=== PATIENT | female | born 1965 | race Caucasian/White ===

== ENCOUNTER → 2018-05-30 13:10 | Outpatient (CLI) | payer BC, SELFPAY | PROVIDERS: PCP Family Medicine; Visit Provider Family Medicine | DX: G47.33 Obstructive sleep apnea (adult) (pediatric) (principal); G47.10 Hypersomnia, unspecified; E66.9 Obesity, unspecified | CPT/HCPCS: G0399 ==

== ENCOUNTER → 2019-09-22 09:37 | Outpatient (CLI) | payer BC, SELFPAY ==
[2019-09-22 10:20] VITALS: PULSE 68; PULSE 70
== END ==
PROVIDERS: PCP Family Medicine; Visit Provider Nurse Practitioner
DX: R06.02 Shortness of breath (principal)
CPT/HCPCS: 94060; 94640; 94726; 94729

== ENCOUNTER → 2019-09-23 14:38 | Outpatient (CLI) | payer BC, SELFPAY ==
--- NOTE | 2019-09-23 14:57 | XR_ITS ---
PROCEDURE: XR CHEST 2V CLINICAL HISTORY: SOB ON EXERTION COMPARISON: No exams were available for comparison FINDINGS: The cardiomediastinal silhouette and pulmonary vascularity are within normal limits. The lungs are clear without infiltrates, suspicious nodules, or pleural effusions. No acute bony abnormalities. IMPRESSION: No acute findings. Dictated b Yonis Barrios MD 09/23/2019 15:23 Yonis Barrios MD in [place] 09/23/2019 15:23
== END ==
PROVIDERS: PCP Nurse Practitioner; Visit Provider Nurse Practitioner
DX: R06.02 Shortness of breath (principal)
CPT/HCPCS: 71046

== ENCOUNTER → 2019-10-02 06:53 | Outpatient (CLI) | payer BC, SELFPAY ==
--- NOTE | 2019-10-02 | CA_ITS ---
APPROVED REPORT Technologist: Rossy Mcnally, Ht: 5 ft 4 in Wt: 206 lbs BSA: 1.98 m2 HR: 64 bpm BP: 124/72 mmHg Rhythm: NSR Indications: Chest Pain, Dyspnea Medical History Allergies: No known drug allergies Stress Test Details Test: Sajan HR Resting HR: 77 bpm Max Heart Rate (APMHR): 168 bpm Max HR Achieved: 152 bpm Target HR (85% APMHR): 142 bpm % of APMHR: 90 Recovery HR: 120 bpm BP Resting BP: 124/72 mmHg Max BP: 144/72 mmHg Recovery BP: 164.0/72.0 mmHg ECG Resting ECG: NSR Clinical Exercise duration: 08:03 min Highest Stage Achieved: Exercise capacity: 10.1 METs Stress ECG Conclusion Sajan Protocal completed. Exercised 08:03. Mets 10.1. Max BP 144/72. Max HR 152 bpm. Stopped due to SOB. No CP, SOB at peak infusion/exercise. Occasional PVC, less than 1.5mm ST depression. Images to follow. Test Summary . Sitting . . . . . . . Cardiolite injected . . Stop exercise at 08:03 . . . . Electronically signed by : Bartolo Muller, 10/02/2019 13:18:17
--- NOTE | 2019-10-02 07:17 | NM_ITS ---
APPROVED REPORT Exam: Nuclear Stress Test Indication: c.p., sob, palpitations, fatigue Patient Location: Outpatient Stress Tech: Lisbet Chirinosnkson [place] Tech:JARRELL Gomez RT (R)(N)(M) Ht: 5 ft 4 in Wt: 206 lbs Bra Size: 40D HR: 64 bpm BP: 124/72 mmHg BSA: 1.98 m2 BMI: 35.3 History: c.p., sob, palpitations, fatigue Procedure: Patient exercised on Sajan protocol 8:03 minutes and sec, resting heart rate 64 bpm, resting blood pressure 124/72 mmHg, with exercise maximum heart rate achived was 152 bpm which is 90 % of the maximum predicted heart rate and blood pressure was 144/72 mmHg. Patient denied any complaint of chest pain. Patient has Good exercise capacity, achieved 10.1 METs of workload on treadmill, the blood pressure response to exercise was Adequate. Electrocardiogram Resting electrocardiogram showed sinus rhythm, with exercise there is less than 1.[address] segment depression noted from the baseline EKG. The EKG portion of the exercise Myoview is negative for ischemia. Cardiac Stress and Resting SPECT Images: Cardiac Stress and Resting SPECT images were obtained using technetium 99m Myoview 31.2 mCi stress and 10.32 mCi at rest. Gated SPECT for analysis of segmental wall motion and calculation of the ejection fraction also done. Cardiac stress and resting SPECT images show mild fixed defect anteroseptally with normal hiral gated SPECT is likely secondary to soft tissue attenuation, no reversible ischemia seen, computer derived ejection fraction is over 65% with no regional wall motion abnormality, right ventricle is normal size and contractility. Conclusion: 1. The EKG portion of the exercise Myoview is negative for ischemia, patient has good exercise capacity achieved 10.1 mets of workload on treadmill, the blood pressure response to exercise was adequate, there was no exercise-induced chest discomfort. 2. No scintigraphic evidence of reversible ischemia seen at this level of exercise, computer derived ejection fraction is over 65% with no regional wall motion abnormality, right ventricle is normal size and contractility. 3. Likely normal exercise Myoview study. Electronically signed by : Bartolo Muller, 10/02/2019 13:21:29
--- NOTE | 2019-10-02 08:27 | CA_ITS ---
APPROVED REPORT EXAM: Comprehensive 2D, Doppler, and color-flow Echocardiogram [employer]visor [employer]: Jil King RT(R) Ht: 5 ft 4 in Wt: 206lbs BSA: 1.98 BP: 143/91 mmHg Indications: CP, palpitations, fatigue, edema, SOB, SCHRADER, obesity 2D Dimensions LVOT 1.95 cm (M/F) 1.5-2.5 M-Mode Dimensions RVDd 2.30 cm (0.9-2.6) LVDd 4.16 cm (3.5-5.7) LVDs 2.98 cm (3.5-5.7) IVSd 0.83 cm (0.6-1.1) PWd 0.93 cm (0.6-1.1) EF (Teich) 55.20% FS 28.40% EDV (Teich) 76.80 mL ESV (Teich) 34.40 mL LV Diastology E/A Ratio 1.37 Mitral Valve MV A Velocity 61.00 (40-130 cm/s) Left Ventricle Left atrium is normal size, left ventricle is normal size, there is no concentric left ventricular hypertrophy, visually estimated ejection fraction 55% with no regional wall motion abnormality. Diastolic parameters are within normal range. Right Ventricle Right atrium and right ventricular normal size and contractility. Aortic Valve Aortic valve is grossly normal, there is no aortic stenosis or aortic insufficiency. Mitral Valve Mitral valve is grossly normal, there is trace mitral regurgitation. Tricuspid Valve Tricuspid valve is grossly normal, there is trace tricuspid regurgitation. Pulmonic Valve Pulmonic valve is poorly visualized. Great Vessels Aortic root is normal size. Pericardium No significant pericardial effusion noted. Conclusion 1. Normal left ventricular size, preserved left ventricular systolic function, visually estimated ejection fraction 55% with no regional wall motion abnormality, diastolic parameters are within normal range. 2. Mild mitral and tricuspid regurgitation. 3. No significant pericardial effusion noted. Electronically signed by : Bartolo Muller, 10/02/2019 14:03:05
== END ==
PROVIDERS: PCP Nurse Practitioner; Visit Provider Family Medicine
DX: R06.02 Shortness of breath (principal); R00.2 Palpitations
CPT/HCPCS: 78452; 93017; 93225; 93226; 93306; A9502

== ENCOUNTER → 2019-10-07 08:23 | Outpatient (CLI) | payer BC, SELFPAY ==
[2019-10-07 13:04] LABS: Coronavirus 19 IgG Antibody Negative (Negative); Coronavirus 19 IgM Antibody Negative (Negative)
== END ==
PROVIDERS: Visit Provider Surgery
DX: Z01.818 Encounter for other preprocedural examination (principal); Z12.11 Encounter for screening for malignant neoplasm of colon
CPT/HCPCS: 36415; 86328

== ENCOUNTER 2019-10-08 06:22 | Day surgery (SDC) | payer BC, SELFPAY ==
[2019-10-06 10:06] VITALS: BMI 35.3
[2019-10-08 07:00] VITALS: BP 116/75; PULSE 67; RESP 18; TEMP 36.2; O2SAT 97
[2019-10-08 08:00] VITALS: O2SAT 97
--- NOTE | 2019-10-08 08:02 | SUR.PREOP ---
#22g angio started in pts lle upon arrival in scope room
--- NOTE | 2019-10-08 08:13 | HMH.ANESCL ---
[facility] Anesthesia Checklist - Patient Identification Patient Identification: Arm Band, Verbal (Name & ) - Structural Data Admitted From: Home Planned Operative Procedure/s: Colonoscopy Consent for Planned Operative Procedure(s) Verified: Yes Verified Documents: Surgical Consent, History and Physical - Chart Verification Results Verified: None - Additional verifications Anesthesia Reactions: No - Airway Assessment C-Spine Mobility Assessed: Yes TMJ Mobility Assessed: Yes Dentition: Good Dentition (Missing teeth) - Neurological Assessment Level of Consciousness: Awake, Alert, Appropriate, Follows Commands Hx Seizures: No Numbness or tingling in extremities: No - Anesthesia Plan Anesthesia Risk discussed: Yes Anesthesia Plan: Verified ASA Class: II Anesthesia Type: MAC [facility] History I have reviewed the patient's past medical history: Yes Medical History: Reports:: Asthma (exertional ) Denies:: Cancer, Diabetes Mellitus Type 1, Diabetes Mellitus Type 2, MRSA *Have you ever received a pneumonia vaccine?: No *Have you received a flu vaccine this season?: No Comment:: obesity Anesthesia experience/problems:: No prior complications Other Surgeries: Yes: , Tubal Ligation Amputation: No Fractures: No - *Social History Last grade of school completed: High school graduate Smoking Status: Never smoker Alcohol Intake: never Substance Use Type: denies use *Occupational Status:: employed *Travel in the last 8 weeks: None Family Hx:: Other (NA)
[2019-10-08 08:22] VITALS: BP 80/48; PULSE 66; RESP 18; TEMP 36.7; O2SAT 93
--- NOTE | 2019-10-08 08:23 | HMH.SCOPE ---
- Procedure: Date: 10/08/19 Patient Date of :: 1965 Procedure Performed:: Colonoscopy Indications:: Family history of colon cancer Performing Provider:: Sav Way MD Referring Provider:: . Sedation:: Monitored anesthesia care Procedure:: After informed consent was obtained the patient was taken to the endoscopy suite. Sedation ensued after the patient was transferred to the left lateral decubitus position. Pulse, blood pressure, and oxygen saturation were monitored throughout the procedure. Digital rectal exam revealed no significant abnormality. The colonoscope was placed in position. The entire colon was evaluated. The colonoscope was carefully removed and the patient was transferred to recovery in stable condition. Please see findings and specimens below for detail. Findings:: Minimal hemorrhoidal cushions Bowel preparation moderate Significant spasticity/lack of relaxation Specimens:: None Recommendations:: Repeat colonoscopy in approximately 3 years secondary to family history of colon cancer, moderate bowel preparation, and spasticity/lack of relaxation. Complications:: No immediate Estimated blood obtained (mL): 0
[2019-10-08 08:32] VITALS: BP 85/45; PULSE 66; RESP 18; O2SAT 97
[2019-10-08 08:42] VITALS: BP 93/58; PULSE 62; RESP 18; O2SAT 97
[2019-10-08 09:00] VITALS: BP 100/70; PULSE 63; RESP 18; O2SAT 97
== END 2019-10-08 09:00 | disposition home or self-care (01) ==
LOC: OUTP 06:24
PROVIDERS: PCP Nurse Practitioner; Visit Provider Surgery
PROC: 0DJD8ZZ Inspection of Lower Intestinal Tract, Via Natural or Artificial Opening Endoscopic (ICD-10-PCS; CPT 45378; principal; 2019-10-08 07:30)
DX: Z12.11 Encounter for screening for malignant neoplasm of colon (principal); Z80.0 Family history of malignant neoplasm of digestive organs; K64.0 First degree hemorrhoids; K59.8 Other specified functional intestinal disorders; J45.909 Unspecified asthma, uncomplicated; E66.9 Obesity, unspecified; Z68.35 Body mass index [BMI] 35.0-35.9, adult; Z79.899 Other long term (current) drug therapy
CPT/HCPCS: 45378; J2704

== ENCOUNTER → 2021-10-02 06:14 | Outpatient (CLI) | payer BC, SELFPAY ==
[2021-10-02 20:07] LABS: Basophils % 0.7 % (0.1-2.0); Eosinophils # 0.2 K/mm3 (0.0-0.4); Eosinophils % 3.9 % (0.1-12.0); Hematocrit 43.7 % (37.0-47.0); Hemoglobin 13.5 g/dL (12.2-16.2); Lymphocytes # 2.2 K/mm3 (0.7-4.5); Lymphocytes % 39.7 % (10-50); Mean Corpuscular HGB Conc 30.9 g/dL (31.8-35.4); Mean Corpuscular Hemoglobin 30.6 pg (27.0-31.2); Mean Corpuscular Volume 98.9 fl (81-99); Mean Platelet Volume 9.4 fl (7.4-10.4); Monocytes # 0.4 K/mm3 (0.1-1.0); Monocytes % 8.2 % (1.7-9.3); Neutrophils # 2.6 K/mm3 (1.8-7.8); Neutrophils % 47.5 % (37.0-80.0); Platelet Count 292 K/mm3 (142-424); Red Blood Count 4.41 M/mm3 (4.20-5.40); Red Cell Distribution Width 13.2 % (11.5-17.5); White Blood Count 5.4 K/mm3 (4.8-10.8)
[2021-10-02 20:12] LABS: Alanine Aminotransferase 27 U/L (12-78); Albumin Level 4.2 g/dl (3.5-5.0); Albumin/Globulin Ratio 1.6 (1.1-1.8); Alkaline Phosphatase 110 U/L (38-126); Anion Gap 10.5 mEq/L (5-15); Aspartate Amino Transferase 39 U/L (14-36); Bilirubin,Total 0.3 mg/dl (0.2-1.3); Blood Urea Nitrogen 10 mg/dl (7-17); Calcium 9.6 mg/dl (8.4-10.2); Carbon Dioxide 29 mmol/L (22.0-30.0); Chloride 106 mmol/L (98-107); Chol/HDL Ratio 3.6 (1-3.5); Cholesterol 168 mg/dl (140-200); Estimated Glomerular Filt Rate 87 ml/min (>60); GFR (African American) 106 ML/MIN (>60); Globulin 2.7 g/dL (1.3-3.2); Glucose 92 mg/dl (74-100); HDL Cholesterol 47 mg/dl (40-60); Potassium 4.5 mmoL/L (3.5-5.1); Sodium 141 mmol/L (136-145); Total Protein,Serum 6.9 g/dl (6.3-8.2); Triglycerides 63 mg/dl (30-150); VLDL Cholesterol 13 mg/dL (0-40)
[2021-10-02 20:30] LABS: T4 (Thyroxine) 10.1 ug/dl (5.53-11.0)
[2021-10-02 20:42] LABS: Thyroid Stimulating Hormone 1.37 uIU/mL (0.465-4.68)
[2021-10-02 21:03] LABS: Vitamin B12 624 pg/mL (239-931)
[2021-10-02 22:38] LABS: 25-OH Vitamin D, Total 43.2 ng/mL (30-100)
[2021-10-04 13:50] LABS: Direct LDL Cholesterol 100 mg/dL (100-129)
== END ==
PROVIDERS: PCP Family Medicine; Visit Provider Family Medicine
DX: Z00.00 Encounter for general adult medical examination without abnormal findings (principal); R53.83 Other fatigue; E66.3 Overweight; Z68.33 Body mass index [BMI] 33.0-33.9, adult; Z83.3 Family history of diabetes mellitus; Z79.899 Other long term (current) drug therapy
CPT/HCPCS: 80053; 80061; 82306; 82607; 84436; 84443; 85025

== ENCOUNTER → 2022-11-12 23:37 | Outpatient (CLI) | payer BC, SELFPAY | PROVIDERS: PCP Nurse Practitioner; Visit Provider Nurse Practitioner | DX: N30.01 Acute cystitis with hematuria (principal) | CPT/HCPCS: 87086 ==

== ENCOUNTER → 2022-12-17 08:18 | Outpatient (CLI) | payer BC, SELFPAY ==
[2022-12-17 21:04] LABS: Alanine Aminotransferase 41 U/L (12-78); Albumin Level 4.3 g/dl (3.5-5.0); Albumin/Globulin Ratio 1.5 (1.1-1.8); Alkaline Phosphatase 99 U/L (38-126); Anion Gap 11.8 mEq/L (5-15); Aspartate Amino Transferase 43 U/L (14-36); Bilirubin,Total 0.3 mg/dl (0.2-1.3); Blood Urea Nitrogen 13 mg/dl (7-17); Calcium 9.7 mg/dl (8.4-10.2); Carbon Dioxide 29 mmol/L (22.0-30.0); Chloride 104 mmol/L (98-107); Chol/HDL Ratio 4.3 (1-3.5); Cholesterol 180 mg/dl (140-200); Estimated Glomerular Filt Rate 74 ml/min (>60); GFR (African American) 90 ML/MIN (>60); Globulin 2.9 g/dL (1.3-3.2); Glucose 89 mg/dl (74-100); HDL Cholesterol 42 mg/dl (40-60); Potassium 4.8 mmoL/L (3.5-5.1); Sodium 140 mmol/L (136-145); Total Protein,Serum 7.2 g/dl (6.3-8.2); Triglycerides 138 mg/dl (30-150); VLDL Cholesterol 28 mg/dL (0-40)
[2022-12-17 21:14] LABS: Direct LDL Cholesterol 102.21 mg/dL (100-129)
== END ==
PROVIDERS: PCP Nurse Practitioner; Visit Provider Nurse Practitioner
DX: E66.9 Obesity, unspecified (principal); Z68.35 Body mass index [BMI] 35.0-35.9, adult; Z79.899 Other long term (current) drug therapy
CPT/HCPCS: 80053; 80061

== ENCOUNTER 2023-03-21 22:04 | Outpatient (CLI) | payer BC, SELFPAY ==
[2023-03-21 18:59] LABS: Basophils % 0.5 % (0.1-2.0); Eosinophils # 0.2 K/mm3 (0.0-0.4); Eosinophils % 2.8 % (0.1-12.0); Hematocrit 41.8 % (37.0-47.0); Hemoglobin 13.6 g/dL (12.2-16.2); Lymphocytes # 2.8 K/mm3 (0.7-4.5); Lymphocytes % 41.4 % (10-50); Mean Corpuscular HGB Conc 32.5 g/dL (31.8-35.4); Mean Corpuscular Hemoglobin 31.3 pg (27.0-31.2); Mean Corpuscular Volume 96.3 fl (81-99); Monocytes # 0.5 K/mm3 (0.1-1.0); Neutrophils # 3.3 K/mm3 (1.8-7.8); Neutrophils % 48.2 % (37.0-80.0); Platelet Count 301 K/mm3 (142-424); Red Blood Count 4.34 M/mm3 (4.20-5.40); Red Cell Distribution Width 13.3 % (11.5-17.5); White Blood Count 6.8 K/mm3 (4.8-10.8)
[2023-03-21 19:00] LABS: Alanine Aminotransferase 26 U/L (12-78); Albumin Level 4.2 g/dl (3.5-5.0); Albumin/Globulin Ratio 1.6 (1.1-1.8); Alkaline Phosphatase 87 U/L (38-126); Aspartate Amino Transferase 30 U/L (14-36); Bilirubin,Total 0.3 mg/dl (0.2-1.3); Blood Urea Nitrogen 17 mg/dl (7-17); Calcium 9.3 mg/dl (8.4-10.2); Carbon Dioxide 28 mmol/L (22.0-30.0); Chloride 106 mmol/L (98-107); Chol/HDL Ratio 3.7 (1-3.5); Cholesterol 211 mg/dl (140-200); Estimated Glomerular Filt Rate 87 ml/min (>60); GFR (African American) 105 ML/MIN (>60); Globulin 2.7 g/dL (1.3-3.2); Glucose 90 mg/dl (74-100); HDL Cholesterol 57 mg/dl (40-60); Sodium 142 mmol/L (136-145); Total Protein,Serum 6.9 g/dl (6.3-8.2); Triglycerides 69 mg/dl (30-150); VLDL Cholesterol 14 mg/dL (0-40)
[2023-03-21 19:11] LABS: Direct LDL Cholesterol 117.99 mg/dL (100-129)
[2023-03-21 19:17] LABS: 25-OH Vitamin D, Total 30.2 ng/mL (30-100)
[2023-03-21 19:29] LABS: Anion Gap 12.2 mEq/L (5-15); Potassium 4.2 mmoL/L (3.5-5.1)
[2023-03-21 19:32] LABS: Thyroid Stimulating Hormone 1.42 uIU/mL (0.465-4.68)
[2023-03-21 19:51] LABS: Vitamin B12 439 pg/mL (239-931)
[2023-03-22 00:08] LABS: Hemoglobin A1C 5.5 % (4.0-6.0)
== END 2023-03-21 23:59 ==
LOC: LAB.DROPOF 22:04
PROVIDERS: PCP Nurse Practitioner; Visit Provider Nurse Practitioner
DX: K21.9 Gastro-esophageal reflux disease without esophagitis (principal); R30.0 Dysuria; E66.9 Obesity, unspecified; Z68.35 Body mass index [BMI] 35.0-35.9, adult; Z79.85 Long-term (current) use of injectable non-insulin antidiabetic drugs; Z79.899 Other long term (current) drug therapy
CPT/HCPCS: 80053; 80061; 82306; 82607; 83036; 84443; 85025

== ENCOUNTER 2023-07-12 11:45 | Emergency (ER) | payer BC, SELFPAY ==
[2023-07-12 12:04] VITALS: BP 129/71; PULSE 81; RESP 16; TEMP 36.9; O2SAT 100; BMI 36.9
--- NOTE | 2023-07-12 12:06 | ED_ITS ---
Discharge Plan Disposition Patient Disposition: Home, Self-Care Condition: Good Prescriptions Prescriptions: New cyclobenzaprine 10 mg Tablet 10 mg PO BID PRN (Reason: Muscle Spasm) Qty: 20 0RF methylprednisolone 4 mg Tablets,Dose Pack 4 mg PO DIRECTED 6 Days Qty: 21 0RF Rx Instructions: Take 1 pack as directed for 6 days No Action Wegovy 2.4 mg/0.75 mL pen injector 2.4 mg SQ WEEKLY Qty: 3 2RF omeprazole 40 mg capsule,delayed release(DR/EC) See Rx Instructions .ROUTE .COMPLEX Qty: 30 2RF Dose Instruction: TAKE 1 CAPSULE BY MOUTH ONCE DAILY Rx Instructions: TAKE 1 CAPSULE BY MOUTH ONCE DAILY topiramate 25 mg tablet See Rx Instructions .ROUTE .COMPLEX Qty: 60 2RF Dose Instruction: Take 1 Tablet by mouth twice daily. Rx Instructions: Take 1 Tablet by mouth twice daily. Referrals Follow up/Referrals: Esteban Gutierrez MD [Primary Care Provider] - See instructions Activity Restrictions/Add. Instructions Additional Instructions/Restrictions: Go home and rest. It would be best if you rested tomorrow too. No heavy lifting. No twisting for the next few days. Take the oral medications as directed. The muscle relaxer (cyclobenzaprine--Flexeril) will make you drowsy, so don't drive or operate heavy machinery after taking it. Follow up with your regular doctor. GO TO THE ER FOR ANY WORSENING SYMPTOMS OR CONCERN, ESPECIALLY BOWEL OR BLADDER ISSUES, SADDLE AREA NUMBNESS, FEVER, ETC Clinical Impressions Clinical Impression: Back pain, thoracic, Knee pain, Foot pain Stand Alone Forms Stand Alone Forms: Work/School Release Instructions Patient Instructions: DI for Foot Pain, DI for Knee Pain, Cyclobenzaprine, Methylprednisolone, Thoracic Back Pain Discharge ED Provider: Ray Weaver [facility] General Stated complaint: back pain Time Seen by Provider: 07/12/23 12:06 Related Data Previous Rx's Medication Instructions Recorded omeprazole 40 mg capsule,delayed See Rx Instructions .Route 02/21/23 release .COMPLEX #30 caps topiramate 25 mg tablet See Rx Instructions .Route 03/11/23 .COMPLEX #60 tabs semaglutide (weight loss) 2.4 2.4 mg (0.75 mL) SQ WEEKLY #3 mL 03/21/23 mg/0.75 mL subcutaneous pen injector (Carlos Alberto) cyclobenzaprine 10 mg tablet 10 mg PO BID PRN Muscle Spasm #20 07/12/23 tabs methylprednisolone 4 mg tablets in 4 mg PO DIRECTED 6 days #21 tabs 07/12/23 a dose pack Allergies Allergy/AdvReac Type Severity Reaction Status Date / Time No Known Allergies Allergy Verified 04/22/23 10:15 [facility] Disclaimer: The information contained in this section may have been updated after the patient was seen, as this information can be updated by other users. Medical History Obesity GERD (gastroesophageal reflux disease) Adult ADHD Anxiety Surgical History History of tubal ligation History of Social History Smoking Status: Never smoker alcohol intake: never substance use type: denies use current occupational status: employed Travel in the last 8 weeks: None caffeine: No ROS Obtained: Yes All systems reviewed & no additional complaints except as documented Constitutional Constitutional: Denies chills and Denies fever(s) Eyes Eyes: Denies eye discharge ENT Ears, Nose, Mouth, and Throat: Denies dizziness, Denies otalgia and Denies sore throat Cardiovascular Cardiovascular: Denies chest pain Respiratory Respiratory: Denies shortness of breath, Denies chest congestion, Denies cough, Denies stridor and Denies wheezing Gastrointestinal Gastrointestingal: Denies nausea or vomiting Musculoskeletal Musculoskeletal: Reports as per HPI Integumentary/Breasts Skin/Breast: Denies rash Neurologic Neurologic: Denies dizziness and Denies paresthesias Allergic/Immunologic Allergic/Immunologic: Denies wheezing Physical Exam General General appearance: alert and in no apparent distress Head Head exam: atraumatic, normocephalic and normal inspection Eye Eye exam: Present normal appearance, PERRL and EOMI ENT ENT exam: Present normal exam, normal oropharynx, mucous membranes moist, TM's normal bilaterally and normal external ear exam Neck Neck exam: Present normal inspection, full ROM and trachea midline; Absent meningismus or lymphadenopathy Chest Chest inspection: Present normal inspection and symmetric chest wall rise; Absent tenderness Respiratory Respiratory exam: Present normal lung sounds bilaterally; Absent respiratory distress Cardiovascular Cardiovascular exam: Present regular rate and normal rhythm; Absent JVD Abdominal Exam Abdominal exam: Present soft and normal bowel sounds; Absent distention, tenderness or guarding Extremities Exam Extremities exam: Present normal inspection, full ROM and normal capillary refill; Absent calf tenderness Back Exam Back exam: Present normal inspection; Absent tenderness Neurological Exam Neurological exam: Present alert and oriented X3 Psychiatric Psychiatric exam: Present normal affect and normal mood Skin Skin exam: Present warm, dry, intact and normal color Lymphatic Lymphatic Findings: no adenopathy Medical Decision Making Medical Records Medical records reviewed: No I reviewed the patient's medical records. Andi Inquiry Pt receiving controlled substance: No
[2023-07-12 12:52] VITALS: BP 129/71; PULSE 81; RESP 16; TEMP 36.9; O2SAT 100
== END 2023-07-12 12:53 | disposition home or self-care (01) ==
PROVIDERS: Emergency Provider Nurse Practitioner Family; PCP Family Medicine
DX: M54.6 Pain in thoracic spine (principal); M25.569 Pain in unspecified knee; M79.673 Pain in unspecified foot
CPT/HCPCS: 99204; 99212; G0463